=== PATIENT | female | born 1950 | race Caucasian/White ===

== ENCOUNTER 2018-07-22 20:00 | Inpatient (IN) ==
[2018-07-22] MEDS ORDERED: Adenosine Inj 6 MG/2 ML Syringe IV.PUSH ONE ×2 (20:24→20:25)
[2018-07-22 20:52] LABS: Baso % (Auto) 0.4 % (0.0-2.0); Eos # (Auto) 0.3 th/mm3 (0.0-0.4); Eos % (Auto) 3.1 % (0.0-4.0); Hematocrit 38.9 % (35.0-46.0); Hemoglobin 13.5 gm/dL (11.6-15.3); Lymph # (Auto) 2.3 th/mm3 (1.0-4.8); Mean Corpuscular HGB Conc 34.7 % (32.0-36.0); Mean Corpuscular Hemoglobin 33.3 pg (27.0-34.0); Mean Corpuscular Volume 96.1 fL (80.0-100.0); Mono # (Auto) 0.8 th/mm3 (0.0-0.9); Mono % (Auto) 9.4 % (0.0-8.0); Neut % (Auto) 59.1 % (16.0-70.0); Platelet Count 246 th/mm3 (150-450); Red Blood Count 4.05 mil/mm3 (4.00-5.30); Red Cell Distribution Width 12.6 % (11.6-17.2); White Blood Count 8.4 th/mm3 (4.0-11.0)
--- NOTE | 2018-07-22 20:56 | XR ---
EXAM DATE: 07/22/2018 8:49 PM EST AGE/SEX: 67 years / Female INDICATIONS: Chest pain. CLINICAL DATA: This is the patient's initial encounter. Patient reports that signs and symptoms have been present for 1 day and indicates a pain score of 1/10. MEDICAL/SURGICAL HISTORY: Hypertension. CABG. COMPARISON: No prior exams available for comparison. FINDINGS: The patient is status post sternotomy. The heart size is normal. The lungs are grossly clear. No effu linsey is seen. CONCLUSION: No acute cardiopulmonary process. Electronically signed by: Thien Peck MD 07/22/2018 8:55 PM EST
[2018-07-22 21:11] LABS: Alanine Aminotransferase 28 U/L (10-53); Anion Gap 9 meq/L (5-15); Aspartate Aminotransferase 24 U/L (15-37); Blood Urea Nitrogen 15 mg/dL (7-18); Calcium 9.5 mg/dL (8.5-10.1); Carbon Dioxide 23.9 meq/L (21.0-32.0); Chloride 104 meq/L (98-107); Glomerular Filtration Rate 59 mL/min (>89); Glucose,Random 110 mg/dL (74-106); Potassium 3.7 meq/L (3.5-5.1); Sodium 137 meq/L (136-145)
[2018-07-22 21:15] LABS: Alkaline Phosphatase 103 U/L (45-117); Total Protein 7.9 g/dL (6.4-8.2)
[2018-07-22] MEDS ORDERED: Heparin Drip 25,000 UNIT/250 ML BAG IV.CONT PRN (21:19)
[2018-07-22] MEDS ORDERED: Heparin 10,000 UNITS/10 ML Vial (for IV use) IV.PUSH STA (21:19)
--- NOTE | 2018-07-22 21:26 | ED ---
HPI General Chief Complaint: Arrhythmia / Palpitations Stated Complaint: Chest pain Time Seen by Provider: 07/22/18 20:25 Source: patient Mode of arrival: ambulatory Limitations: no limitations History of Present Illness HPI narrative: 67-year-old female came to the emergency room brought by her with history of sudden onset palpitations that she started feeling at 6 PM. Patient has history of SVT and had an ablation done couple days ago at [facility] in [place]. Her credit portfolio manager is Dr. Brooks. Patient was also complaining of chest discomfort. When she arrived her heart rate was in 160s. Patient was awake but appeared to be very anxious. Pain was nonradiating and in her entire chest. No aggravating or relieving symptoms identified. There was some shortness of breath associated and some dizziness. No history of syncopal episode. Rest of the vital signs were stable. Related Data Home Medications Medication Instructions Recorded Confirmed aspirin 162.5 mg PO DAILY 07/22/18 07/22/18 diphenhydramine HCl [Benadryl] 50 mg PO HS PRN 07/22/18 07/22/18 levothyroxine 100 mcg PO DAILY 07/22/18 07/22/18 losartan 100 mg PO DAILY 07/22/18 07/22/18 melatonin 5 mg PO HS PRN 07/22/18 07/22/18 metoprolol succinate 75 mg PO DAILY 07/22/18 07/22/18 omeprazole 40 mg PO DAILY 07/22/18 07/22/18 simvastatin 20 mg PO QPM 07/22/18 07/22/18 Allergies Allergy/AdvReac Type Severity Reaction Status Date / Time meperidine Allergy Severe Unverified 03/29/17 12:55 Review of Systems ROS: all other systems reviewed are negative [facility] Medical History Medical History SVT (supraventricular tachycardia) (Acute) Social History Social History Substance History: No History of Abuse Smoking Status: Former smoker Tobacco Type: Cigarettes How Often Do You Have a Drink Containing Alcohol: 2 to 4 times a month Recent Travel in [facility] within the Last 8 Weeks: No Recent Out of Country Travel within the Last 8 Weeks: No Immunization History Tetanus Immunization: >5 Years Exam Narrative Exam Narrative: GENERAL: Awake, alert, anxious, moderate distress SKIN: Focused skin assessment warm/dry. HEAD: Atraumatic. Normocephalic. EYES: Pupils equal and round. No scleral icterus. No injection or drainage. ENT: No nasal bleeding or discharge. Mucous membranes pink and moist. NECK: Trachea midline. No JVD. CARDIOVASCULAR: Regular rate and rhythm. Tachycardia. No murmur appreciated. RESPIRATORY: No accessory muscle use. Clear to auscultation. Breath sounds equal bilaterally. GASTROINTESTINAL: Abdomen soft, non-tender, nondistended. Hepatic and splenic margins not palpable. MUSCULOSKELETAL: No obvious deformities. No clubbing. No cyanosis. No edema. NEUROLOGICAL: Awake and alert. No obvious cranial nerve deficits. Motor grossly within normal limits. Normal speech. PSYCHIATRIC: Appropriate mood and affect; insight and judgment normal. Course Initial Documented Vital Signs Temperature 98.8 F 07/22/18 20:20 Pulse Rate 154 H 07/22/18 20:20 Respiratory Rate 20 07/22/18 20:20 Blood Pressure 172/107 H 07/22/18 20:20 Pulse Oximetry 94 L 07/22/18 20:20 Last Documented Vital Signs Temperature 98.8 F 07/22/18 20:20 Pulse Rate 73 07/22/18 21:18 Respiratory Rate 20 07/22/18 21:18 Blood Pressure 154/94 H 07/22/18 21:18 Pulse Oximetry 98 07/22/18 21:18 Critical Care Time Critical Care Time: Yes Total Critical Care Time: 30 Attestation: Aggregate critical care time was 30 minutes. Time to perform other separately billable procedures was not included in the critical care time. My time did not include minutes spent treating any other patients simultaneously or on activities that did not directly contribute to the patient's treatment. The services I provided to this patient were to treat and/or prevent clinically significant deterioration that could result in: SVT, chemical cardioversion, non-STEMI, heparin bolus and drip I provided critical care services requiring my management, as noted below: Chart data review, documentation time, medication orders and management, vital sign assessments/reviewing monitor data, ordering and reviewing lab tests, ordering and interpreting/reviewing x-rays and diagnostic studies, care of the patient and discussion of the patient with the admitting physicians. Medical Decision Making MDM Narrative Medical decision making narrative: 9:22 PM based on the EKG which was suggestive of narrow complex tachycardia possibly SVT given her prior history I decided to give her a dose of adenosine 6 mg. After rapid push followed by saline the patient's heart rate converted to normal sinus rhythm at 85 bpm. Chest pain started to go away as per the patient. Blood test results came back and her troponin is elevated. Based on that I have started on heparin bolus and drip. Patient will require admission. I will discussed the case with the hospitalist for admission to [facility]. I have put a call out for her credit portfolio manager and waiting for him to call back. Patient has been informed about the plan and she understands. There was a repeat EKG done after the adenosine push. It showed normal sinus rhythm with heart rate of 85 bpm per minute. 9:42 PM case was discussed with Dr. Mejia who is covering for her credit portfolio manager. He agreed with the plan. Hospitalist has accepted the patient. Medical Screen Exam Complete: Yes Emergency Medical Condition: Yes Lab Data Result diagrams: 07/22/18 20:30 07/22/18 20:30 Lab Results 07/22/18 07/22/18 Range/Units 20:30 20:30 WBC 8.4 (4.0-11.0) th/mm3 RBC 4.05 (4.00-5.30) mil/mm3 Hgb 13.5 (11.6-15.3) gm/dL Hct 38.9 (35.0-46.0) % MCV 96.1 (80.0-100.0) fL MCH 33.3 (27.0-34.0) pg MCHC 34.7 (32.0-36.0) % RDW 12.6 (11.6-17.2) % Plt Count 246 (150-450) th/mm3 MPV 8.0 (7.0-11.0) fL Neut % (Auto) 59.1 (16.0-70.0) % Lymph % (Auto) 28.0 (9.0-44.0) % [place] % (Auto) 9.4 H (0.0-8.0) % Eos % (Auto) 3.1 (0.0-4.0) % Baso % (Auto) 0.4 (0.0-2.0) % Neut # (Auto) 5.0 (1.8-7.7) th/mm3 Lymph # (Auto) 2.3 (1.0-4.8) th/mm3 [place] # (Auto) 0.8 (0.0-0.9) th/mm3 Eos # (Auto) 0.3 (0.0-0.4) th/mm3 Baso # (Auto) 0.0 (0.0-0.2) th/mm3 WBC Differential . Differential Comment Auto diff final Sodium 137 (136-145) meq/L Potassium 3.7 (3.5-5.1) meq/L Chloride 104 (98-107) meq/L Carbon Dioxide 23.9 (21.0-32.0) meq/L Anion Gap 9 (5-15) meq/L BUN 15 (7-18) mg/dL Creatinine 0.94 (0.50-1.00) mg/dL Estimated GFR 59 L (>89) mL/min Random Glucose 110 H (74-106) mg/dL Calcium 9.5 (8.5-10.1) mg/dL Total Bilirubin 0.4 (0.2-1.0) mg/dL AST 24 (15-37) U/L ALT 28 (10-53) U/L Alkaline Phosphatase 103 (45-117) U/L Troponin I 0.20 H (0.02-0.05) ng/mL Total Protein 7.9 (6.4-8.2) g/dL Albumin 4.0 (3.4-5.0) g/dL Imaging Data Radiologist's impression: Chest X-Ray 07/22/18 20:29 CONCLUSION: No acute cardiopulmonary process. ECG Data Attestation: I personally reviewed and interpreted this ECG as follows: Interpretation: Twelve-lead EKG was reviewed by me. Narrow complex tachycardia , atrial flutter with 2-1 block versus SVT. Heart rate of 156 bpm. Discharge Plan Discharge Disposition Patient Disposition: ED Admit(ED Internal Use Only) Discharge Order Discharge Orders: ED Use Only Admit Order (Routine); Ordered 07/22/18 Ordered By: Kaylie Yanez Physicians Team ED Provider: Kaylie Yanez Primary Care Provider: Roland Puri Attending Provider: Magdalena Plunkett Status ED Status: Admitted Patient
[2018-07-22] MEDS ORDERED: Bisacodyl 10 MG Supp RECTAL PRN (21:45)
[2018-07-22] MEDS ORDERED: Acetaminophen 325 MG Tablet PO PRN (21:45)
[2018-07-22] MEDS ORDERED: Morphine Sulfate Inj 2 MG/ML Vial IV.PUSH PRN (21:46)
--- NOTE | 2018-07-22 21:48 | P.HPIM ---
History of Present Illness Primary Care Physician: Roland Puri MD History of Present Illness: This is a 67-year-old female with a PMH of SVT who presented to the ER with complaints of palpitations starting earlier this evening. Patient follows with Dr. Brooks who had referred her to [facility] in [place] for ablation, which she had on 07/20/18. States Senior Physical Therapist told her he was not able to reproduce episodes of SVT during procedure, but did ablate few areas. Pt notes no complaints until this evening when she had sudden onset of palpitations. Checked her HR at home and noted to be 140's. On arrival, BP 172 /107, HR R, O2 sat 94% on RA, Afebrile. S/p Adenosine x1 dose in ER w/ normalization. Pt without complaints at this time, although notes episode of chest pain after Adenosine, now resolved. Dr. Mejia consulted by ER physician, will evaluate in am. CBC unremarkable, Trop 0.20. CXR with no acute findings. - Diagnosis (1) SVT (supraventricular tachycardia) (2) Chest pain (3) Elevated troponin Inpatient Certification: I certify that the inpatient services were ordered in accordance with Medicare regulations governing the order. This includes certification that hospital inpatient services are reasonable and necessary and in the case of services not specified as inpatient-only under 42 CFR 419.22(n), that they are appropriately provided as inpatient services in accordance to with the 2-midnight benchmark under 43 CFR 412.3(e) Estimated Total Length of Stay (Days): 2 Plans for Post Hospital Care: Not yet determined Review of Systems PAST FAMILY HISTORY: Reviewed. No h/o DM or CAD All other systems reviewed negative except as [facility] - History History Provided By: Patient - Medical History Medical History: Medical History (Last Reviewed 07/22/18 @ 21:22 by Kaylie Yanez MD) SVT (supraventricular tachycardia) - Tobacco History Smoking Status: Former smoker Tobacco Type: Cigarettes - Alcohol History How Often Do You Have a Drink Containing Alcohol: 2 to 4 times a month - Substance Use History Substance History: No History of Abuse - Travel History Recent Travel in the [place] Within the Last 8 Weeks: No Recent Travel Out of the Country Within the Last 8 Weeks: No - Immunization History Tetanus Immunization: >5 Years Medications and Allergies Active Medications: Active Medications Heparin Sodium/Dextrose (Heparin/D5w 25,000 U/250 Ml) 25,000 unit in 250 mls @ 0 mls/hr IV.CONT TITRATE PRN; Protocol PRN Reason: Per Protocol Sodium Chloride (Ns Flush) 2 ml IV.FLUSH UNSCH PRN PRN Reason: FLUSH AFTER USING IV ACCESS Allergies Allergy/AdvReac Type Severity Reaction Status Date / Time meperidine Allergy Severe Unverified 03/29/17 12:55 Home Medications Medication Instructions Recorded Confirmed Type aspirin 162.5 mg PO DAILY 07/22/18 07/22/18 History diphenhydramine HCl [Benadryl] 50 mg PO HS PRN 07/22/18 07/22/18 History levothyroxine 100 mcg PO DAILY 07/22/18 07/22/18 History losartan 100 mg PO DAILY 07/22/18 07/22/18 History melatonin 5 mg PO HS PRN 07/22/18 07/22/18 History metoprolol succinate 75 mg PO DAILY 07/22/18 07/22/18 History omeprazole 40 mg PO DAILY 07/22/18 07/22/18 History simvastatin 20 mg PO QPM 07/22/18 07/22/18 History Exam Vital signs: Vital Signs 07/22/18 20:20 07/22/18 20:31 07/22/18 20:56 Temperature 98.8 F Pulse Rate 154 H 85 Respiratory Rate 20 18 Blood Pressure 172/107 H 186/86 H Pulse Oximetry 94 L 100 100 07/22/18 21:18 Temperature Pulse Rate 73 Respiratory Rate 20 Blood Pressure 154/94 H Pulse Oximetry 98 Intake & Output 07/22/18 07/22/18 07/23/18 06:59 18:59 06:59 Weight 74.843 kg Narrative: PE: GENERAL: She is a pleasant middle-aged white female in no acute distress. at bedside. SKIN: Focused skin assessment warm and dry. HEENT: PERRLA, EOMI. No scleral icterus or conjunctival pallor. No lid lag or facial droop. CARDIOVASCULAR: Regular rate and rhythm. No obvious murmurs to auscultation. No chest tenderness to palpation. RESPIRATORY: No obvious rhonchi or wheezing. Clear to auscultation. Breath sounds equal bilaterally. GASTROINTESTINAL: Abdomen soft, non-tender, nondistended. BS normal. MUSCULOSKELETAL: Extremities without clubbing, cyanosis, or edema. No obvious deformities. NEUROLOGICAL: Awake, alert and oriented x4. No focal neurologic deficits. Moving both upper and lower extremities spontaneously. PSYCHIATRIC: Appropriate mood and affect. Insight and judgment normal. Results - Labs CBC & Chem 7: 07/22/18 20:30 07/22/18 20:30 Labs: Short CBC 07/22/18 Range/Units 20:30 WBC 8.4 (4.0-11.0) th/mm3 Hgb 13.5 (11.6-15.3) gm/dL Hct 38.9 (35.0-46.0) % Plt Count 246 (150-450) th/mm3 BMP 07/22/18 20:30 Sodium 137 Potassium 3.7 Chloride 104 Carbon Dioxide 23.9 BUN 15 Creatinine 0.94 Calcium 9.5 Cardiac Enzymes 07/22/18 Range/Units 20:30 Troponin I 0.20 H (0.02-0.05) ng/mL Liver Function 07/22/18 Range/Units 20:30 Total Bilirubin 0.4 (0.2-1.0) mg/dL AST 24 (15-37) U/L ALT 28 (10-53) U/L Alkaline Phosphatase 103 (45-117) U/L Albumin 4.0 (3.4-5.0) g/dL - Imaging Impressions Chest X-Ray 07/22/18 20:29 CONCLUSION: No acute cardiopulmonary process. Caprini VTE Risk Assessment Caprini VTE Risk Assessment: No/Low Risk (score <= 1) Caprini Risk Assessment Model: Point Value = 1 Point Value = 2 Point Value = 3 Point Value = 5 Age 41-60 Minor surgery BMI > 25 kg/m2 Swollen legs Varicose veins or History of unexplained or recurrent spontaneous Oral contraceptives or hormone replacement Sepsis (< 1 month) Serious lung disease, including pneumonia (< 1 month) Abnormal pulmonary function Acute myocardial infarction Congestive heart failure (< 1 month) History of inflammatory bowel disease Medical patient at bed rest Age 61-74 Arthroscopic surgery Major open surgery (> 45 min) Laparoscopic surgery (> 45 min) Malignancy Confined to bed (> 72 hours) Immobilizing plaster cast Central venous access Age >= 75 History of VTE Family history of VTE Factor V Leiden Prothrombin [id number] Lupus anticoagulant Anticardiolipin antibodies Elevated serum homocysteine Heparin-induced thrombocytopenia Other congenital or acquired thrombophilia Stroke (< 1 month) Elective arthroplasty Hip, pelvis, or leg fracture Acute spinal cord injury (< 1 month) Prophylaxis Regimen: Total Risk Factor Score Risk Level Prophylaxis Regimen 0-1 Low Early ambulation 2 Moderate Order ONE of the following: *Sequential Compression Device (SCD) *Heparin 5000 units SQ BID 3-4 Higher Order ONE of the following medications: *Heparin 5000 units SQ TID *Enoxaparin/Lovenox 40 mg SQ daily (WT < 150 kg, CrCl > 30 mL/min) *Enoxaparin/Lovenox 30 mg SQ daily (WT < 150 kg, CrCl > 10-29 mL/min) *Enoxaparin/Lovenox 30 mg SQ BID (WT < 150 kg, CrCl > 30 mL/min) AND/OR *Sequential Compression Device (SCD) 5 or more Highest Order ONE of the following medications: *Heparin 5000 units SQ TID (Preferred with Epidurals) *Enoxaparin/Lovenox 40 mg SQ daily (WT < 150 kg, CrCl > 30 mL/min) *Enoxaparin/Lovenox 30 mg SQ daily (WT < 150 kg, CrCl > 10-29 mL/min) *Enoxaparin/Lovenox 30 mg SQ BID (WT < 150 kg, CrCl > 30 mL/min) AND *Sequential Compression Device (SCD) Assessment and Plan - Assessment (1) SVT (supraventricular tachycardia) Code(s): I47.1 - Supraventricular tachycardia Status: Acute (2) Chest pain Code(s): R07.9 - Chest pain, unspecified Status: Acute (3) Elevated troponin Code(s): R74.8 - Abnormal levels of other serum enzymes Status: Acute - Plan A/P: 1. SVT: h/o SVT, s/p ablation 07/20/18 at [facility] in [place], reports acute onset of palpitations today, HR 140-150's, found to be in SVT, s/ p Adenosine x1 w/ normalization. Admit to [facility], telemetry, continue home Metoprolol. Follows w/ Dr. Brooks, Dr. Mejia consulted who is covering, will eval in am. 2. Elevated Trop: Trop 0.22, likely due to combination of recent ablation w/ acute episode of SVT. Check serial cardiac enzymes. 3. Chest Pain: episode of chest pain associated w/ Adenosine, now chest pain free, Morphine prn if needed. 4. DVT Prophylaxis: SCD/Teds 5. Social work for d/c planning as needed. 6. Case discussed w/ ER physician at length, labs/records/imaging reviewed by me.
[2018-07-22 22:16] LABS: Activated Partial Thrombo Time 30.8 sec (23.4-31.7); Prothrombin Time 10.6 sec (9.8-11.6)
[2018-07-22] MEDS: Melatonin 5 MG Tablet PO PRN (23:28)
[2018-07-23] MEDS: Levothyroxine 100 MCG Tablet PO SCH (05:13)
[2018-07-23 06:11] LABS: Baso % (Auto) 0.2 % (0.0-2.0); Eos # (Auto) 0.2 th/mm3 (0.0-0.4); Eos % (Auto) 2.6 % (0.0-4.0); Hematocrit 36.3 % (35.0-46.0); Hemoglobin 12.6 gm/dL (11.6-15.3); Lymph # (Auto) 1.8 th/mm3 (1.0-4.8); Lymph % (Auto) 28.7 % (9.0-44.0); Mean Corpuscular HGB Conc 34.8 % (32.0-36.0); Mean Corpuscular Hemoglobin 33.2 pg (27.0-34.0); Mean Corpuscular Volume 95.5 fL (80.0-100.0); Mono # (Auto) 0.7 th/mm3 (0.0-0.9); Mono % (Auto) 10.6 % (0.0-8.0); Neut # (Auto) 3.6 th/mm3 (1.8-7.7); Neut % (Auto) 57.9 % (16.0-70.0); Platelet Count 216 th/mm3 (150-450); Red Blood Count 3.81 mil/mm3 (4.00-5.30); Red Cell Distribution Width 12.7 % (11.6-17.2); White Blood Count 6.2 th/mm3 (4.0-11.0)
[2018-07-23 06:33] LABS: Alanine Aminotransferase 19 U/L (10-53); Albumin 3.2 g/dL (3.4-5.0); Alkaline Phosphatase 82 U/L (45-117); Anion Gap 9 meq/L (5-15); Aspartate Aminotransferase 16 U/L (15-37); Blood Urea Nitrogen 11 mg/dL (7-18); Calcium 8.5 mg/dL (8.5-10.1); Carbon Dioxide 26.5 meq/L (21.0-32.0); Chloride 106 meq/L (98-107); Glomerular Filtration Rate 89 mL/min (>89); Glucose,Random 93 mg/dL (74-106); Potassium 3.8 meq/L (3.5-5.1); Sodium 141 meq/L (136-145); Total Protein 6.5 g/dL (6.4-8.2); Troponin I 0.18 ng/mL (0.02-0.05)
[2018-07-23] MEDS ORDERED: Senna/Docusate Sodium 8.6/50 MG Tablet PO SCH (09:00)
[2018-07-23] MEDS ORDERED: Aspirin 325 MG Tablet PO SCH (09:00)
--- NOTE | 2018-07-23 10:37 | ECG ---
Date Performed: 07/22/2018 Time Performed: 20:30:49 PTAGE: 67 years EKG: Sinus rhythm NONSPECIFIC ST & T-WAVE ABNORMALITY BORDERLINE ECG Compared to PREVIOUS TRACING , patient is no longer in SVT. The ST-T abnormalities are more prominent from the old tracing, clinical correlation needed. PREVIOUS TRACIN07/22/2018 20.21.56 DOCTOR: Jr Fernandez Interpretating Date/Time 07/23/2018 10:36:42
--- NOTE | 2018-07-23 10:37 | ECG ---
Date Performed: 07/22/2018 Time Performed: 20:21:56 PTAGE: 67 years EKG: SUPRAVENTRICULAR TACHYCARDIA MECHANISM CANNOT BE DISCERNED FROM THE EKG DIFFUSE ST-T ABNORM ALITY, SUGGEST PROBABLE ISCHEMIA, WHICH ARE MORE PROMINENT FROM THE PRIOR TRACING. SVT IS NEW FROM [place] IOR TRACING. ABNORMAL ECG PREVIOUS TRACING : 12/09/2015 23.27 DOCTOR: Jr Fernandez Interpretating Date/Time 07/23/2018 10:35:47
--- NOTE | 2018-07-23 15:34 | P.PNIM ---
Subjective Interval history: No chest pain today. No tachycardia today. No new complaints from the patient. She had an ablation earlier this week at [facility] in [place]. Physical Exam Vital signs: Last Vital Signs Temp 97.6 F 07/23/18 12:00 Pulse 58 L 07/23/18 15:00 Resp 18 07/23/18 12:00 BP 159/93 H 07/23/18 12:00 Pulse Ox 100 07/23/18 12:00 Intake & Output 07/21/18 07/22/18 07/23/18 07/24/18 06:59 06:59 06:59 06:59 Intake Total 240 / 240 Output Total 500 / 500 Balance -260 / -260 Weight 81.9 kg Narrative: GENERAL: NAD, A&Ox3 HEAD: Normocephalic. NECK: Supple, trachea midline. No lymphadenopathy. EYES: No scleral icterus. No injection or drainage. CARDIOVASCULAR: Regular rate and rhythm without murmurs, gallops, or rubs. RESPIRATORY: Breath sounds equal bilaterally. No accessory muscle use. GASTROINTESTINAL: Abdomen soft, non-tender, nondistended. MUSCULOSKELETAL: No cyanosis, or edema. SKIN: Warm and dry. NEURO: No focal neurological deficits. Results Labs CBC & Chem 7: 07/23/18 05:48 07/23/18 05:48 Imaging Imaging: Impressions Chest X-Ray 07/22/18 20:29 CONCLUSION: No acute cardiopulmonary process. Assessment and Plan (1) SVT (supraventricular tachycardia): Code(s): I47.1 - Supraventricular tachycardia Status: Acute (2) Chest pain: Code(s): R07.9 - Chest pain, unspecified Status: Acute (3) Elevated troponin: Code(s): R74.8 - Abnormal levels of other serum enzymes Status: Acute Plan 67-year-old female admitted secondary to SVT with recent history of ablation SVT Chest Pain Resolved for now Cardiac enzymes trend remained flat Follow on telemetry Cardiology following She has been on Metoprolol XL and was taking this treatment prior to the onset of SVT Potential need for further ablation vs. medical management adjsutment Elevated troponin Cardiac enzymes trend remained flat This is likely related to recent ablation No need for further monitoring DVT prophylaxis SCDs Progress Note: Quality VTE Deep Vein Thrombosis/Pulmonary Embolism Present on Admission: No _ (1) Chest pain Qualifiers: Chest pain type: Ischemic chest pain type:
--- NOTE | 2018-07-23 16:34 | MB ---
cc: Damon Mejia MD DATE: 07/23/2018 REFERRING PHYSICIAN: Dc Brooks MD PRIMARY CARE PHYSICIAN: Roland Puri MD HISTORY OF PRESENT ILLNESS: Gin Rondon is a very pleasant 67-year-old woman with past medical history as noted and listed below. Her past cardiac history significant for coronary artery disease, status post CABG, supraventricular tachycardia. She is status post SVT ablation at [facility] in [place] by Dr. Duarte. Last night, she had sudden onset of palpitations with retrosternal chest pain. She presented to the emergency room and was noted to have SVT ventricular rate to 160s BPM. She was given adenosine bolus 6 mg x 1 with conversion to sinus rhythm. Her troponin levels were mildly elevated at 0.2, suggestive of myocardial injury, likely type 2 ACS. Presently, telemetry shows sinus rhythm. No complaints of chest pain or shortness of breath. She relates having a stress test in [place] several weeks ago that was normal. MEDICATIONS PRIOR TO ADMISSION: 1. Aspirin. 2. Benadryl. 3. Levothyroxine. 4. Losartan. 5. Melatonin. 6. Metoprolol succinate 75 mg daily. 7. Omeprazole. 8. Simvastatin. ALLERGIES: MEPERIDINE. PAST MEDICAL HISTORY: As above. PAST SURGICAL HISTORY: Status post coronary artery bypass grafting x 3. SOCIAL HISTORY: She is a former smoker. She drinks alcohol socially. No illicit drug use. No recent travel. REVIEW OF SYSTEMS: No recent fevers, chills, coughing, sputum production. No recent gastrointestinal, genitourinary and neurologic symptoms. PHYSICAL EXAMINATION: VITAL SIGNS: Temperature 97.9, pulse 59, respirations 18, blood pressure 143/88. She is anicteric. PERRLA. No xanthelasma. NECK: Slight JVD. There are no carotid bruits. LUNGS: Clear to auscultation. No chest wall tenderness. CARDIOVASCULAR: Regular rate and rhythm, 2/6 systolic murmur at left lower sternal border. ABDOMEN: Soft and nontender. EXTREMITIES: Showed no peripheral edema. LABORATORY DATA: WBC 8.4, hemoglobin 13.5, hematocrit 38.9, platelet count 246,000. Sodium 137, potassium 3.7, BUN 15, creatinine 0.94. Troponin 0.20, 0.21, 0.18. ECG: Supraventricular tachycardia, ventricular rate 156 BPM, normal axis, diffuse nonspecific ST-T abnormalities. ECG POST-ADENOSINE: Sinus rhythm, heart rate 86 BPM, normal axis and intervals, early transition, nonspecific ST-T abnormalities. IMPRESSION: 1. Supraventricular tachycardia terminated by adenosine. 2. Status post recent ablation. 3. Coronary artery disease. 4. Abnormal troponin levels likely due to type 2 ACS, demand ischemia from supraventricular tachycardia. 5. Hypertension. 6. Hypercholesterolemia. PLAN: 1. Okay to discontinue IV heparin. 2. Start Cardizem 30 mg q.6 hours. 3. Aspirin, Losartan, metoprolol and simvastatin have been continued. 4. Dr. Brooks will return in a.m. MD RONEY HernándezV/meghna , 02:52 PM , 03:04 PM
[2018-07-23] MEDS: Melatonin 5 MG Tablet PO PRN (20:04)
[2018-07-24] MEDS: Levothyroxine 100 MCG Tablet PO SCH (05:25)
[2018-07-24 06:42] LABS: Baso % (Auto) 0.6 % (0.0-2.0); Eos # (Auto) 0.2 th/mm3 (0.0-0.4); Eos % (Auto) 5.1 % (0.0-4.0); Hematocrit 38.5 % (35.0-46.0); Hemoglobin 13.2 gm/dL (11.6-15.3); Lymph # (Auto) 1.4 th/mm3 (1.0-4.8); Mean Corpuscular HGB Conc 34.1 % (32.0-36.0); Mean Corpuscular Hemoglobin 33.2 pg (27.0-34.0); Mean Corpuscular Volume 97.3 fL (80.0-100.0); Mean Platelet Volume 7.7 fL (7.0-11.0); Mono # (Auto) 0.4 th/mm3 (0.0-0.9); Mono % (Auto) 8.1 % (0.0-8.0); Neut # (Auto) 2.7 th/mm3 (1.8-7.7); Neut % (Auto) 57.2 % (16.0-70.0); Platelet Count 218 th/mm3 (150-450); Red Blood Count 3.96 mil/mm3 (4.00-5.30); Red Cell Distribution Width 12.7 % (11.6-17.2); White Blood Count 4.7 th/mm3 (4.0-11.0)
[2018-07-24 07:08] LABS: Alanine Aminotransferase 19 U/L (10-53); Albumin 3.4 g/dL (3.4-5.0); Anion Gap 7 meq/L (5-15); Aspartate Aminotransferase 13 U/L (15-37); Blood Urea Nitrogen 8 mg/dL (7-18); Carbon Dioxide 28.8 meq/L (21.0-32.0); Chloride 105 meq/L (98-107); Glomerular Filtration Rate Greater Than 89 mL/min (>89); Glucose,Random 86 mg/dL (74-106); Potassium 3.4 meq/L (3.5-5.1); Sodium 141 meq/L (136-145)
[2018-07-24 07:10] LABS: Alkaline Phosphatase 88 U/L (45-117); Total Protein 7.1 g/dL (6.4-8.2)
[2018-07-24] MEDS ORDERED: Psyllium Husk SF 3.4 GM in 5.8 GM Packet PO SCH (09:00)
[2018-07-24] MEDS ORDERED: Psyllium Husk SF 3.4 GM in 5.8 GM Packet PO PRN (09:00)
--- NOTE | 2018-07-24 10:47 | P.PNIM ---
Subjective Interval history: No chest pain today. No recurrence of SVT thus far. Next treatment plan will be deferred to cardiology. Physical Exam Vital signs: Last Vital Signs Temp 98.4 F 07/24/18 08:00 Pulse 61 07/24/18 10:00 Resp 18 07/24/18 08:00 BP 155/72 H 07/24/18 08:00 Pulse Ox 97 07/24/18 08:00 Intake & Output 07/22/18 07/23/18 07/24/18 07/25/18 06:59 06:59 06:59 06:59 Intake Total 240 / 240 2260 / 2260 Output Total 500 / 500 2750 / 2750 Balance -260 / -260 -490 / -490 Weight 81.9 kg 81.2 kg Narrative: GENERAL: NAD, A&Ox3 HEAD: Normocephalic. NECK: Supple, trachea midline. No lymphadenopathy. EYES: No scleral icterus. No injection or drainage. CARDIOVASCULAR: Regular rate and rhythm without murmurs, gallops, or rubs. RESPIRATORY: Breath sounds equal bilaterally. No accessory muscle use. GASTROINTESTINAL: Abdomen soft, non-tender, nondistended. MUSCULOSKELETAL: No cyanosis, or edema. SKIN: Warm and dry. NEURO: No focal neurological deficits. Results Labs CBC & Chem 7: 07/24/18 05:23 07/24/18 05:23 Assessment and Plan (1) SVT (supraventricular tachycardia): Code(s): I47.1 - Supraventricular tachycardia Status: Acute (2) Chest pain: Code(s): R07.9 - Chest pain, unspecified Status: Acute (3) Elevated troponin: Code(s): R74.8 - Abnormal levels of other serum enzymes Status: Acute Plan 67-year-old female admitted secondary to SVT with recent history of ablation No recurrence of SVT. Continue metoprolol. Continue monitoring on telemetry. Cardiology following. SVT Chest Pain Resolved for now Cardiac enzymes trend remained flat Follow on telemetry Cardiology following She has been on Metoprolol XL and was taking this treatment prior to the onset of SVT Potential need for further ablation vs. medical management adjsutment Elevated troponin Cardiac enzymes trend remained flat This is likely related to recent ablation No need for further monitoring DVT prophylaxis SCDs Progress Note: Quality VTE Deep Vein Thrombosis/Pulmonary Embolism Present on Admission: No _ (1) Chest pain Qualifiers: Chest pain type: Ischemic chest pain type:
--- NOTE | 2018-07-24 13:36 | P.PNCA ---
Subjective Interval history: Patient reports doing well today, no further episodes of SVT. Ambulating in room without difficulty, no chest pain or SOB. Patient had SVT ablation on 07/20. Reports that Tuesday evening she had SVT episode that did not repsond to vagal episodes. She converted to SR with adenosine. Medications and Allergies Allergies Allergy/AdvReac Type Severity Reaction Status Date / Time meperidine Allergy Severe Unverified 03/29/17 12:55 Home Medications Medication Instructions Recorded Confirmed Type aspirin 162.5 mg PO DAILY 07/22/18 07/22/18 History diphenhydramine HCl [Benadryl] 50 mg PO HS PRN 07/22/18 07/22/18 History levothyroxine 100 mcg PO DAILY 07/22/18 07/22/18 History melatonin 5 mg PO HS PRN 07/22/18 07/22/18 History omeprazole 40 mg PO DAILY 07/22/18 07/22/18 History simvastatin 20 mg PO QPM 07/22/18 07/22/18 History Active Medications: Active Medications Acetaminophen (Tylenol) 650 mg PO Q4H PRN PRN Reason: Temp > 100.4 Al Hydroxide/Mg Hydroxide (Milk Of Magnesia Liq) 30 ml PO Q12H PRN PRN Reason: Mild Constipation Aspirin (Aspirin) 162.5 mg PO DAILY [facility] Last Admin: 07/23/18 08:30 Dose: Not Given Bisacodyl (Dulcolax Supp) 10 mg RECTAL DAILY PRN PRN Reason: SEVERE CONSITIPATION Diphenhydramine HCl (Benadryl) 50 mg PO HS PRN PRN Reason: Sleep Last Admin: 07/23/18 20:04 Dose: 50 mg Lactulose (Lactulose Liq) 30 ml PO DAILY PRN PRN Reason: SEVERE CONSITIPATION Levothyroxine Sodium (Synthroid) 100 mcg PO DAILY@0600 [facility] Last Admin: 07/24/18 05:25 Dose: 100 mcg Losartan Potassium (Cozaar) 100 mg PO DAILY [facility] Last Admin: 07/24/18 09:22 Dose: 100 mg Melatonin (Melatonin) 5 mg PO HS PRN PRN Reason: Sleep Last Admin: 07/23/18 20:04 Dose: 5 mg Metoprolol Succinate (Toprol Xl) 75 mg PO HS [facility] Last Admin: 07/23/18 20:04 Dose: 75 mg Morphine Sulfate (Morphine Inj) 2 mg IV.PUSH Q4H PRN PRN Reason: PAIN 6-10 Ondansetron HCl (Zofran Inj) 4 mg IV.PUSH Q6H PRN PRN Reason: NAUSEA OR VOMITING Pantoprazole Sodium (Protonix) 40 mg PO DAILY [facility] Last Admin: 07/24/18 09:23 Dose: Not Given Pravastatin Sodium (Pravachol) 40 mg PO DAILY@1800 [facility] Last Admin: 07/23/18 19:22 Dose: 40 mg Psyllium Hydrophilic Mucilloid (Metamucil Fiber Sf Pkt) 1 pack PO DAILY PRN PRN Reason: FOR CONSTIPATION Senna/Docusate Sodium (Ashley-Colace) 1 tab PO BID [facility] Last Admin: 07/23/18 08:31 Dose: Not Given Sennosides (Senokot) 17.2 mg PO Q12H PRN PRN Reason: Moderate Constipation Last Admin: 07/23/18 20:13 Dose: 17.2 mg Sodium Chloride (Ns Flush) 2 ml IV.FLUSH BID [facility] Last Admin: 07/24/18 09:23 Dose: 2 ml Sodium Chloride (Ns Flush) 2 ml IV.FLUSH PRN PRN PRN Reason: FLUSH AFTER USING IV ACCESS Physical Exam Vital signs: Vital Signs 07/23/18 14:00 07/23/18 15:00 07/23/18 16:00 Temperature 97.7 F Pulse Rate 80 58 L 60 Respiratory Rate 18 Blood Pressure 131/82 Pulse Oximetry 96 07/23/18 17:00 07/23/18 17:30 07/23/18 18:00 Temperature Pulse Rate 66 61 Respiratory Rate Blood Pressure Pulse Oximetry 96 07/23/18 19:00 07/23/18 20:00 07/23/18 21:00 Temperature 98.2 F Pulse Rate 61 58 L 60 Respiratory Rate 18 Blood Pressure 137/89 Pulse Oximetry 96 07/23/18 22:00 07/23/18 23:00 07/23/18 23:40 Temperature 98.3 F Pulse Rate 57 L 56 L 51 L Respiratory Rate 18 Blood Pressure 113/74 Pulse Oximetry 97 07/24/18 00:00 07/24/18 01:00 07/24/18 02:00 Temperature Pulse Rate 51 L 56 L 50 L Respiratory Rate Blood Pressure Pulse Oximetry 07/24/18 03:00 07/24/18 04:00 07/24/18 05:00 Temperature 98.4 F Pulse Rate 52 L 48 L 56 L Respiratory Rate 18 Blood Pressure 123/72 Pulse Oximetry 97 07/24/18 05:49 07/24/18 07:00 07/24/18 08:00 Temperature 98.4 F Pulse Rate 59 L 57 L 69 Respiratory Rate 18 Blood Pressure 155/72 H Pulse Oximetry 97 07/24/18 09:00 07/24/18 10:00 07/24/18 11:00 Temperature Pulse Rate 68 61 59 L Respiratory Rate Blood Pressure Pulse Oximetry 07/24/18 12:00 07/24/18 12:10 07/24/18 13:00 Temperature 98.0 F Pulse Rate 67 78 Respiratory Rate 20 Blood Pressure 120/77 Pulse Oximetry 96 97 Intake & Output 07/23/18 07/24/18 07/24/18 18:59 06:59 18:59 Intake Total 1540 / 1540 720 / 720 Output Total 0 / 0 700 / 700 Balance -510 / -510 20 / 20 Weight 81.2 kg Intake: IV 100 / 100 Heparin/D5W 25,000 U/250 mL 25, 100 / 100 000 unit In 250 ml @ Per Protocol IV.CONT TITRATE PRN Rx #:[id number] Oral 1440 / 1440 720 / 720 Output: Urine 0 / 0 700 / 700 Other: Date of Last Bowel Movement 07/21/18 07/21/18 07/21/18 # Bowel Movements 0 - Constitutional no acute distress - Routine HEENT Exam Head: Present: normocephalic, atraumatic Eye: Present: EOMI, PERRL, normal accommodation ENT: Present: mucous membranes moist - Routine Neck Exam Present: supple - Routine Respiratory Exam Present: CTA bilaterally - Routine Cardiovascular Exam Present: RRR - Routine Abdominal Exam Present: soft - Routine Skin Exam Present: intact - Routine Neurological Exam Present: alert, oriented X3 - Detailed Neurological Exam: Coma Scale Eye Opening: Spontaneous Verbal Response: Oriented Motor Response: Obey commands [place] Coma Scale Total: 15 - Routine Psychiatric Exam Present: normal affect Results 07/24/18 05:23 07/24/18 05:23 Cardiac Enzymes 07/22/18 07/23/18 07/23/18 Range/Units 20:30 00:24 05:48 AST 24 16 (15-37) U/L Troponin I 0.20 H 0.21 H 0.18 H (0.02-0.05) ng/mL 07/24/18 Range/Units 05:23 AST 13 L (15-37) U/L Troponin I (0.02-0.05) ng/mL Coagulation 07/22/18 07/23/18 07/23/18 Range/Units 22:00 05:48 13:30 PT 10.6 (9.8-11.6) sec APTT 30.8 70.6 H D 62.0 H (23.4-31.7) sec 07/24/18 Range/Units 05:23 PT (9.8-11.6) sec APTT 30.1 D (23.4-31.7) sec CBC 07/22/18 07/23/18 07/24/18 Range/Units 20:30 05:48 05:23 WBC 8.4 6.2 4.7 (4.0-11.0) th/mm3 RBC 4.05 3.81 L 3.96 L (4.00-5.30) mil/mm3 Hgb 13.5 12.6 13.2 (11.6-15.3) gm/dL Hct 38.9 36.3 38.5 (35.0-46.0) % Plt Count 246 216 218 (150-450) th/mm3 Neut # (Auto) 5.0 3.6 2.7 (1.8-7.7) th/mm3 Lymph # (Auto) 2.3 1.8 1.4 (1.0-4.8) th/mm3 [place] # (Auto) 0.8 0.7 0.4 (0.0-0.9) th/mm3 Eos # (Auto) 0.3 0.2 0.2 (0.0-0.4) th/mm3 Baso # (Auto) 0.0 0.0 0.0 (0.0-0.2) th/mm3 Comprehensive Metabolic Panel 07/22/18 07/23/18 07/24/18 Range/Units 20:30 05:48 05:23 Sodium 137 141 141 (136-145) meq/L Potassium 3.7 3.8 3.4 L (3.5-5.1) meq/L Chloride 104 106 105 (98-107) meq/L Carbon Dioxide 23.9 26.5 28.8 (21.0-32.0) meq/L BUN 15 11 8 (7-18) mg/dL Creatinine 0.94 0.66 0.64 (0.50-1.00) mg/dL Calcium 9.5 8.5 D 9.0 (8.5-10.1) mg/dL AST 24 16 13 L (15-37) U/L ALT 28 19 19 (10-53) U/L Alkaline Phosphatase 103 82 88 (45-117) U/L Total Protein 7.9 6.5 D 7.1 D (6.4-8.2) g/dL Albumin 4.0 3.2 L D 3.4 (3.4-5.0) g/dL Intake and Output 07/23/18 07/24/18 07/24/18 22:59 06:59 14:59 Intake Total 1780 / 1780 480 / 480 Output Total 2049 / 2049 700 / 700 Balance -270 / -270 -220 / -220 Intake: IV 100 / 100 Heparin/D5W 25,000 U/250 mL 25, 100 / 100 000 unit In 250 ml @ Per Protocol IV.CONT TITRATE PRN Rx #:[id number] Oral 1680 / 1680 480 / 480 Output: Urine 2049 / 2049 700 / 700 Other: Date of Last Bowel Movement 07/21/18 07/21/18 07/21/18 # Bowel Movements 0 Weight 81.2 kg - Imaging and Cardiology Imaging: Impressions Chest X-Ray 07/22/18 20:29 CONCLUSION: No acute cardiopulmonary process. Assessment and Plan - Plan Assessment SVT ASHD Mitral regurgitation Hyperlipidemia Plan -Status post SVT ablation with DR. Duarte -History of CABG 1998, pt had negative nuclear stress test 05/2018. Troponin mildly elevated, did not trend. Pt has hx of elevated troponin while in hospital in 05/2018. Pt denies any chest pain. -Recent echo in 05/2018 shows mild MR -Continue on statin. Will plan to increase Metoprolol to 100mg daily, discontinue losartan and have pt follow up in our office on Tuesday, will plan to start Cardizem outpatient. Will also have patient follow up with Dr. Duarte. Patient is stable for discharge home from a cardiac standpoint. The patient was seen and evaluated by Dr. Brooks who participated in care management and decision making. The exam, history, and the medical decision-making described in the above note were completed with the assistance of the mid-level provider. I reviewed and agree with the findings presented. I attest that I had a [id number] encounter with the patient on the same day, and personally performed and documented my assessment and findings in the medical record. Long discussion with pt, , and Dr Duarte. Dr Duarte will try again next week off meds and off sedation Code Status: Full Code Discussed Condition With: Dr. Brooks, RN
--- NOTE | 2018-07-24 15:30 | P.DS ---
DS: Providers Date of admission: 07/22/18 21:36 Primary care physician: Roland Puri MD Consults: 07/22/18 21:47 Consult to Cardiology Routine Consulting Provider: Dc Brooks Does the patient have a Predatory Hunter who follows them?: Yes Preferred Senior Software Test Engineer:: Dc Brooks Reason for Consultation: SVT, Elevated Trop CONSULT FOR AM Notified:: Service Spoke with:: Jolie Date Notified:: 07/22/18 Time Notified:: 22:23 Ordering Provider: JOSHUA Brief History from admission: This is a 67-year-old female with a PMH of SVT who presented to the ER with complaints of palpitations starting earlier this evening. Patient follows with Dr. Brooks who had referred her to [facility] in [place] for ablation, which she had on 07/20/18. States Predatory Hunter told her he was not able to reproduce episodes of SVT during procedure, but did ablate few areas. Pt notes no complaints until this evening when she had sudden onset of palpitations. Checked her HR at home and noted to be 140's. On arrival, BP 172 /107, HR R, O2 sat 94% on RA, Afebrile. S/p Adenosine x1 dose in ER w/ normalization. Pt without complaints at this time, although notes episode of chest pain after Adenosine, now resolved. Dr. Mejia consulted by ER physician, will evaluate in am. CBC unremarkable, Trop 0.20. CXR with no acute findings. DS: Summary Mrs. Rondon is a 67-year-old female. She had an ablation on 07/20/2016 at [facility] in [place]. She reports that she held her metoprolol for 2 days during that visit and procedure but resumed it on 2015. On the night of 07/23/2016 she had a recurrence of SVT which was the original problem that resulted in the ablation. She came into our hospital. Metoprolol was provided, which she was ready on, and has resulted in no recurrence of SVT during her stay here. Potential for ablation was being considered but given patient's debility she has been adjusted by cardiology to have metoprolol 100 mg p.o. daily and discontinue losartan. She will follow-up as an outpatient with cardiology with plans to start diltiazem as an outpatient. Medically stable and cleared for discharge home today. Time Spent with Patient Total time spent providing and/or coordinating discharge services: Quality: VTE Deep Vein Thrombosis/Pulmonary Embolism Present on Admission: No Results Labs on day of discharge: Labs from last 24 hours 07/24/18 07/24/18 07/24/18 05:23 05:23 05:23 WBC 4.7 RBC 3.96 L Hgb 13.2 Hct 38.5 MCV 97.3 MCH 33.2 MCHC 34.1 RDW 12.7 Plt Count 218 MPV 7.7 Neut % (Auto) 57.2 Lymph % (Auto) 29.0 [place] % (Auto) 8.1 H Eos % (Auto) 5.1 H Baso % (Auto) 0.6 Neut # (Auto) 2.7 Lymph # (Auto) 1.4 [place] # (Auto) 0.4 Eos # (Auto) 0.2 Baso # (Auto) 0.0 WBC Differential . Differential Comment Auto diff final APTT 30.1 D Sodium 141 Potassium 3.4 L Chloride 105 Carbon Dioxide 28.8 Anion Gap 7 BUN 8 Creatinine 0.64 Estimated GFR Greater than 89 Random Glucose 86 Calcium 9.0 Total Bilirubin 0.4 AST 13 L ALT 19 Alkaline Phosphatase 88 Total Protein 7.1 D Albumin 3.4 Impressions ITS Impressions Chest X-Ray 07/22/18 20:29 CONCLUSION: No acute cardiopulmonary process. Discharge Plan Discharge Disposition Patient Disposition: 01 Discharge Home Discharge Condition Condition: Stable Discharge Order Discharge Orders: Discharge Order (Routine); Ordered 07/24/18 Ordered By: Logan Justice Cardiology Clear for Discharge (Routine); Ordered 07/24/18 Ordered By: November Shade Discharge Details Anticipated Discharge Date: 07/24/18 Physicians Team Primary Care Provider: Roland Puri Attending Provider: Logan Justice Other Providers: Dc Brooks Rxs /Orders / Referrals /Forms Prescriptions: New metoprolol succinate 100 mg tablet extended release 24 hr 100 mg PO DAILY Qty: 30 RF: 0 Continue omeprazole 40 mg Capsule,Delayed Release(Dr/Ec) 40 mg PO DAILY RF: 0 simvastatin 20 mg Tablet 20 mg PO QPM RF: 0 diphenhydramine HCl [Benadryl] 25 mg Capsule 50 mg PO HS PRN (Reason: Sleep) RF: 0 melatonin 5 mg Tablet 5 mg PO HS PRN (Reason: Sleep) RF: 0 levothyroxine 100 mcg Capsule 100 mcg PO DAILY RF: 0 aspirin 162.5 mg Capsule,Extended Release 24hr 162.5 mg PO DAILY RF: 0 Discontinued metoprolol succinate 25 mg Tablet Extended Release 24 Hr 75 mg PO DAILY RF: 0 losartan 100 mg Tablet 100 mg PO DAILY RF: 0 Referrals: Roland Puri MD [Primary Care Provider] - See Instructions Discharge Instructions Patient Printed Instructions: Metoprolol (By mouth) Status ED Status: Left Department
== END 2018-07-24 17:30 | disposition home or self-care (01) ==
LOC: NEPC 20:00 → NEDA 21:36 → HCIS 23:16
PROVIDERS: ADMIT Hospitalist; ATTEND Hospitalist
DX: E78.00 Pure hypercholesterolemia, unspecified; I25.10 Atherosclerotic heart disease of native coronary artery without angina pectoris; E78.5 Hyperlipidemia, unspecified; Z87.891 Personal history of nicotine dependence; Z95.1 Presence of aortocoronary bypass graft; I34.0 Nonrheumatic mitral (valve) insufficiency; I47.1 Supraventricular tachycardia; I10 Essential (primary) hypertension